=== PATIENT | male | born 1985 | race Caucasian/White ===

== ENCOUNTER 2023-08-25 09:30 | Emergency (ER) | payer BC ==
[2023-08-25] MEDS ORDERED: Diphtheria,Pertussis(Acell),Tetanus Vaccine 0.5 ML Syringe IM ONE (10:00)
[2023-08-25] MEDS ORDERED: Cephalexin 500 MG Cap PO ONE (10:00)
== END 2023-08-25 11:06 | disposition home or self-care (01) ==
LOC: MW.ED 09:30
DX: S61.412A Laceration without foreign body of left hand, initial encounter (principal); Z23 Encounter for immunization; Z79.899 Other long term (current) drug therapy; W26.8XXA Contact with other sharp object(s), not elsewhere classified, initial encounter
CPT/HCPCS: 90471; 90715; 99282; A9270; 99283

== ENCOUNTER 2023-10-04 09:42 | Emergency (ER) | payer BC ==
[2023-10-04] MEDS ORDERED: Lidocaine 1% PF 2 ML SDV INJECT ONE (10:06)
== END 2023-10-04 10:40 | disposition home or self-care (01) ==
LOC: MW.ED 09:42
DX: L02.212 Cutaneous abscess of back [any part, except buttock and flank] (principal); E78.00 Pure hypercholesterolemia, unspecified; I10 Essential (primary) hypertension; E11.9 Type 2 diabetes mellitus without complications; F17.210 Nicotine dependence, cigarettes, uncomplicated
CPT/HCPCS: 10060; 99282; J3490